=== PATIENT | female | born 2005 | race African-American/Black ===

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

== ENCOUNTER 2025-02-11 12:02 | Emergency (ER) | payer SELFPAY | END 2025-02-11 13:33 | disposition home or self-care (01) | LOC: MW.ED 12:02 | DX: M25.561 Pain in right knee (principal); J45.901 Unspecified asthma with (acute) exacerbation; Z79.899 Other long term (current) drug therapy | CPT/HCPCS: 71045; 71045-26; 73090-26-RT; 73090-RT; 73562-26-RT; 73562-RT; 99283 ==